=== PATIENT | female | born 1940 | race Caucasian/White ===

== ENCOUNTER → 2016-06-18 13:11 | Outpatient (CLI) | payer MEDICARE, BC | END | disposition home or self-care (01) | LOC: D.CT 13:11 | DX: R63.4 Abnormal weight loss (principal); R11.2 Nausea with vomiting, unspecified ==

== ENCOUNTER 2018-03-29 06:00 | Day surgery (SDC) | payer MEDICARE, BC ==
[2018-03-28 15:43] LABS: BASOPHILS 0.3 % (0-2); EOSINOPHILS 5.9 % (0-7); HEMATOCRIT 40.4 % (36.0-48.0); IMMATURE GRANULOCYTES 0.1 % (0-5); LYMPHOCYTES 22.6 % (15-50); MCH 25.3 pg (26.0-34.0); MCHC 32.2 g/dL (31.0-37.0); MCV 78.8 fL (80.0-100.0); MEAN PLATELET VOLUME 9.8 fL (7.4-10.4); MONOCYTES 6.9 % (2-11); NEUTROPHILS 64.2 % (40-80); RBC 5.13 10x6/uL (4.00-5.40); RDW 19.4 % (11.5-14.5)
[2018-03-28 15:57] LABS: PLATELET COUNT 250 10x3/uL (130-400)
[2018-03-28 16:19] LABS: APTT 35.8 SECONDS (22.8-39.4); INR 1.04 (0.85-1.17); PROTIME 13.1 SECONDS (11.6-15.0)
[~2018-03-29] VITALS: Ht 157.5 cm; Wt 56.2 kg
[~2018-03-29 06:00] MED LIST: ASPIRIN EC81 M1 PO; BUSPAR 15 MG TA15 MG PO; CALTRATE+D3 PL1 EACH PO; CELEBREX200 MG PO; LEXAPRO20 MG PO; MIRAPEX0.125 MG PO; NORVASC5 MG PO; PAMELOR 25 MG C25 MG PO; PROTONIX40 MG PO; ROZEREM PO; STOOL SOFTENER240 MG PO; SYNTHROID50 MCG PO; XANAX1 MG
[2018-03-29 06:21] VITALS: BP 158/70; Ht 157.5 cm; Wt 56.2 kg
[2018-03-29] MEDS ORDERED: PERCOCET 5-3251 TAB PO (09:06)
--- NOTE | 2018-03-29 09:40 | NUR ---
PRE OP BP 180/90 PRIOR TO ANESTHESIA
--- NOTE | 2018-03-29 09:45 | NUR ---
ANESTHESIA Sean CASTILLO CONSULTED ABOUT PTS BP. NO FURTHER BP MEDS ORDERED
--- NOTE | 2018-03-29 10:34 | NUR ---
1030 O2 TURNED UP TO 4L DUE TO PT FALLING ASLEEP AND O2 SAT DROPPING TO 88%. ENCOURAGED PT TO DEEP BREATH, POSITION CHANGE.
--- NOTE | 2018-03-29 13:53 | NUR ---
1350 PT WANTED ON BEDPAN, PLACED ON BEDPAN.
== END 2018-03-29 15:45 | disposition home or self-care (01) ==
LOC: D.OPS 06:00 → D.PAN 08:00 → D.OPS 08:15
PROVIDERS: Anesthesiology
DX: K43.9 Ventral hernia without obstruction or gangrene (principal)

== ENCOUNTER → 2020-05-09 09:21 | Outpatient (CLI) | payer MEDICARE, BC ==
[2018-03-29 06:21] VITALS: BMI 22.7
[~2020-05-09 09:21] MED LIST changes: +PERCOCET 5-3251 TAB PO
--- NOTE | 2020-05-12 10:15 | EC ---
PATIENT:BHAVNA HILL DATE OF SERVICE: 05/09/20 SEX: F MEDICAL RECORD: [id number] DATE OF : 42 LOCATION:[facility] AGE OF PATIENT: 79 ADMISSION DATE: 05/09/20 REFERRING PHYSICIAN: INTERPRETING PHYSICIAN: LAZARO NEWMAN MD ECHOCARDIOGRAM REPORT ECHO CHARGES 4 ECHO COMPLETE Date: 05/09/20 CLINICAL DIAGNOSIS: HEART MURMUR ECHOCARDIOGRAPHIC MEASUREMENTS (adult normal given) AC root (d.<3.7cm) 3.2 cm LV Septum d (<1.2 cm> 1.2 cm Valve Excursion 1.5 cm LV Septum (systole) 1.4 cm Left Atria (s.<4.0cm> 3.5 cm LVPW d(<1.2cm) 1.6 cm RV (d.<2.3cm) 3.8 cm LVPW (sytole) 1.7 cm LV diastole(<5.6CM) 4.6 cm MV E-F(>70mm/sec) cm LV systole 3.0 cm LVOT Diameter 1.7 cm MV exc.(>10mm) 1.3 cm Est.ejection fraction (50-75%) % DOPPLER: LVIT cm/sec A 83.0 cm/sec E 48.0 cm/sec LA cm/sec RVSP 48 mmHg LVOT 103 cm/sec AOP1/2T 787 m/s Asc. Ao 145 cm/sec RVOT 45 cm/sec RA cm/sec PA 92 cm/sec AV Gradient Peak 8.95 mmHg AV Mean 4.33 mmHg AV Area 2.0 cm MV Gradient Peak 4.21 mmHg MV Mean 1.08 mmHg MV Area cm COMMENTS: Receiving Teller: 2 MADONNA PERALTA Assistant Project Engineer: 3 Dr. Myles TAPE# PACS Pericardial Effusion N DATE OF SERVICE: Adequate 2D, color flow imaging, spectral Doppler, and M-Mode. LVH is present. LV internal dimensions are normal. Wall motion normal. EF greater than or equal to 55%. Aortic valve is tricuspid. No evidence of stenosis by Doppler interrogation. There is mild AI by color flow imaging. Left atrium is normal at 3.5 cm. Mitral valve shows no prolapse. Mild MR. Right-sided chambers are grossly normal. Moderate TR. ECHOCARDIOGRAM REPORT [id number] BHAVNA HILL TRANSINT:[id number] Voice Confirmation ID: [id number] DOCUMENT ID: [id number] LAZARO NEWMAN MD at 1015 CC: [id number] DICTATION DATE: 05/09/20 1249 PREPRESS MANAGER: 05/09/201911 [facility] CLI 05/09/20 [facility] [address] [id number]
== END | disposition home or self-care (01) ==
LOC: D.HCCARDIO 09:21 → D.HCCECHO 11:00
PROVIDERS: ATTEND Internal Medicine Interventional Cardiology
DX: R01.1 Cardiac murmur, unspecified (principal); I20.9 Angina pectoris, unspecified